=== PATIENT | female | born 1960 | race Caucasian/White ===

== ENCOUNTER 2018-09-09 14:18 | Emergency (ER) | payer OTHER ==
[~2018-09-09] VITALS: Ht 154.9 cm; Wt 59.0 kg
[2018-09-09] MEDS ORDERED: KETOROLAC TROMETHAMINE 15 MG INJ IM ONE (15:45)
[2018-09-09] MEDS ORDERED: KETOROLAC TROMETHAMINE 15 MG INJ ONE (15:46)
--- NOTE | 2018-09-09 15:48 | NUR ---
Patient discharged to home in stable conditon. Written and verbal after care instructions given. Patient verbalizes understanding of instructions.pt walks in steady gait. pt accompanied by friend.
== END 2018-09-09 15:50 | disposition home or self-care (01) ==
LOC: ER 14:18
DX: M54.16 Radiculopathy, lumbar region (principal); M25.552 Pain in left hip; R22.41 Localized swelling, mass and lump, right lower limb; F17.200 Nicotine dependence, unspecified, uncomplicated
CPT/HCPCS: 72100; 96372; 99283; J1885; A4663